=== PATIENT | female | born 1935 | race Caucasian/White ===

== ENCOUNTER 2018-11-18 07:20 | Inpatient (IN) | payer OTHER ==
[2018-11-10 12:22] LABS: URINE BILIRUBIN NEGATIVE (Negative); URINE BLOOD NEGATIVE (Negative); URINE CLARITY CLEAR; URINE COLOR YELLOW; URINE GLUCOSE-RANDOM NEGATIVE (Negative); URINE KETONES NEGATIVE (Negative); URINE LEUKOCYTES-REFLEX NEGATIVE (Negative); URINE NITRITE-REFLEX NEGATIVE (Negative); URINE PROTEIN NEGATIVE (Negative); URINE UROBILINOGEN 0.2 E.U./dl (0.2-1.0)
[~2018-11-18] VITALS: Ht 165.1 cm; Wt 84.3 kg
[~2018-11-18 07:20] MED LIST: ALLEGRA ALLERG180 MG PO; ALPHAGAN P5 ML OPHTHALMIC; AVASTIN25 MG/1 ML IV; CALCIUM 600 +1 EAC1 PO; DORZOLAMIDE 2%10 ML OPHTHALMIC; FLEXERIL PO; GLUCOSAMINE &1 EACH PO; LEVOXYL100 MCG PO; MOBIC15 MG PO; NEURONTIN 300300 M1 PO; OMEPRAZOLE 20 M20 M1 PO; OXYBUTYNIN 5 MG5 M2 PO; PRESERVISION A1 EACH PO; SIMVASTATIN40 MG PO; TIMOLOL GL0.5 %/5 M1 OPHTHALMIC; VITAMIN B122500 MCG PO; ZOLOFT50 MG PO
[2018-11-18 09:28] VITALS: BP 136/68
[2018-11-18 15:46] VITALS: BP 145/67
[2018-11-18 16:00] VITALS: BP 154/60
--- NOTE | 2018-11-18 17:18 | NUR ---
PT REMAINED ALERT AND ORIENTED. PT CAME FROM SURGERY FOR RT HIP. ARTEM APPROACH. FULL WBAT. HEMOVAC IN PLACE. ICE PACK TO HIP. MAGGIE HOSE ON BILAT. SCD FOOT PUMPS. 24 HOUR [address]SE OX IN PLACE WITH 2 LITERS O2. 1/2 NS AT 75 ML/HR. PAIN MEDS GIVEN ORDERED. FALL RISK PRECAUTIONS IN PLACE. HOURLY ROUNDING COMPLETED. WILL CONTINUE TO MONITOR.
[2018-11-18 20:10] VITALS: BP 145/62
[2018-11-19 00:31] VITALS: BP 108/59
[2018-11-19 04:19] VITALS: BP 129/66
[2018-11-19 04:53] LABS: HEMATOCRIT 34.7 % (37.0-47.0); HEMOGLOBIN 11.7 gm/dL (12.0-15.0)
--- NOTE | 2018-11-19 05:02 | NUR ---
PATIENT HAS REMAINED ALERT AND ORIENTED X 4 THROUGHOUT THE SHIFT AND RESTING QUIETLY ON HOURLY ROUNDS. PATIENT TRANSFERS IMPROVING. MIN ASSIST SUPINE TO SIT AND CGA ONCE UP FOR MOVE TO BSC. GAIT BELT AND WALKER. DRESSING RIGHT HIP CLEAN AND DRY WITH HEMOVAC PRESENT. PAIN WELL CONTROLLED WITH ORAL MEDICATION. ICE PACKS PROVIDED. VITAL SIGNS STABLE. CONTINUE TO MONITOR.
[2018-11-19 09:00] VITALS: BP 118/62
[2018-11-19 15:45] VITALS: BP 138/51
--- NOTE | 2018-11-19 16:25 | NUR ---
PT.RESTING IN BED. AND DAUGHTER AT BEDSIDE. PTS WILL BE WITH HER AT ALL TIMES AT DISCHARGE AND CAN ASSIST HER NEEDED. DAUGHTER CAN ASSIST IN EVENINGS IF NEEDED. PT.IS NORMALLY INDEPENDENT AT HOME. SHE COOKS,CLEANS,DOES LAUNDRY. HER ASSISTS HER WITH CHORES. PT.CHOSE [facility]. WILL MAKE REFERRAL. CALLED IN PRESCRIPTION FOR XARELTO WRITTEN TO PT.'S PHARMACY. WILL CHECK IN AM FOR COPAY AMOUNT.
--- NOTE | 2018-11-19 17:15 | NUR ---
PATIENT REMAINS ALERT AND ORIENTED. PAIN CONTROLLED WITH HYDROCODONE AND OXYIR. PARTICPATED WITH PT. UP WITH ASSIST OF 1, GAITBELT AND WALKER. DRESSING TO RIGHT HIP C/D/I. HEMOVAC DC'D THIS AM. TOLERATING MEALS. VSS. RA. INCENTIVE SPIROMETER IN USE. BED/CHAIR ALARM IN USE. CALL LIGHT WITHIN REACH. WILL CONTINUE TO MONITOR.
[2018-11-19 20:00] VITALS: BP 118/55
[2018-11-20 04:11] LABS: HEMATOCRIT 33.6 % (37.0-47.0); HEMOGLOBIN 11.5 gm/dL (12.0-15.0)
--- NOTE | 2018-11-20 05:04 | NUR ---
PT REMAINED A&Ox4 THROUGHOUT SHIFT. VITALS STABLE. PT GOT NORCO AROUND 2100 FOR PAIN. STATED PAIN WAS RATING A 1-2 OUT OF 10 WHEN ASKED THE REST OF THE SHIFT, DENIED PAIN MEDICATION. PT HAS EYE DROPS IN ROOM AND IS MANAGING THEM HERSELF. UP WITH 1 TO BATHROOM, USING GAITBELT AND WALKER. MEPILEX IS CLEAN, DRY AND INTACT. THIGH HIGH TEDS, SCDs, AND ICE PACK IN PLACE. FALL PRECAUTIONS IN PLACE. HOURLY ROUNDING COMPLETE. CALL LIGHT WITHIN REACH. WILL CONTINUE TO MONITOR.
[2018-11-20 08:00] VITALS: BP 127/65
[2018-11-20] MEDS ORDERED: PERCOCET PO (09:38)
[2018-11-20] MEDS ORDERED: XARELTO10 MG PO (09:38)
[2018-11-20 14:00] VITALS: BP 127/65
[2018-11-20 17:28] VITALS: BP 127/65
--- NOTE | 2018-11-20 17:33 | NUR ---
PT ALERT AND ORIENTED X 4. RIGHT HIP PAIN MANAGED WITH PO HYDROCODONE. DENIES NAUSEA. PARTICIPATED WITH THERAPY DURING DAY. UP WITH ASSIST X 1 WITH WALKER. PHYSICIAN PAGED TO INFORM OF DRESSING BEING WET DURING SHOWER. ORDER RECEIVED TO CHANGE MEPILEX DRESSING. IV REMOVED. DISCHARGE INSTRUCTIONS GIVEN ALONG WITH PRESCRIPTIONS. PT LEFT UNIT BY WHEEL CHAIR WITH PERSONAL BELONGINGS TO LEAVE WITH SPOUSE BY PRIVATE CAR @ 1700.
--- NOTE | 2018-11-24 14:09 | OP ---
[facility] [address] [place] [address] OPERATIVE REPORT Name: MATTISARA M Room: [address] [place] .R.#: [id number] Admission: 11/18/18 Attend Phys: Mike Barnhart Discharge: 11/20/18 Date of : 39 Report #: [id number] THIS REPORT FOR: //name// CC: Roe Tineo DATE OF SERVICE: 11/18/2018 PREOPERATIVE DIAGNOSIS: Right hip osteoarthritis. POSTOPERATIVE DIAGNOSIS: Right hip osteoarthritis. PROCEDURE: Right total hip arthroplasty with ceramic on polyethylene. SURGEON: Neville Eagle II, DO. EQUIPMENT MANAGER: MAICO Linder. ANESTHESIA: General endotracheal. ESTIMATED BLOOD LOSS: 350 mL. ANTIBIOTICS: Ancef preoperatively. DRAINS: Medium Hemovac. COMPLICATIONS: None. CONDITION OF THE PATIENT: Stable to recovery room. IMPLANTS: Listed in the operative record and progress note. BRIEF HISTORY: The patient was seen in the preoperative area. Preoperative H and P was performed. Site was marked, questions were answered. Risks and benefits were discussed with the patient in detail about the surgery. The patient wished to proceed assuming all risks. DESCRIPTION OF PROCEDURE: The patient was taken to the operative suite, placed supine on the operative table and given appropriate anesthesia. The patient's operative hip was placed on the [place] table leg altamirano and sterilely prepped and draped in the supine position. Surgery was begun by a longitudinal incision over the anterior portion of the hip. This was carried down to the skin and subcutaneous tissues. A small jarad was made in the tensor fascia. It was then split in line with its fibers and retracted laterally. An H capsulotomy was then performed and careful hemostasis was maintained with electrocautery and [facility] [address] [place] [address] OPERATIVE REPORT Name: SARA CHINO Room: [address] [place] [facility].#: [id number] Admission: 11/18/18 Attend Phys: Mike Barnhart Discharge: 11/20/18 Date of : 39 Report #: [id number] Aquamantys. The head and neck cutting alignment guide was then checked with fluoroscopic guidance. Appropriate cut was made to the head and neck and this was then removed. Attention was turned to the acetabulum. Excess labrum was removed. It was then reamed in sequential fashion up to appropriate size. This showed excellent bleeding bone and excellent position on fluoroscopic guidance. The acetabular cup was then malleted in position and secured with cancellous screws. Metal liner was then applied. The patient's leg was then rotated and extended to the [place] table to expose the femur. It was then broached in sequential fashion up to the appropriate size. The appropriate neck was then trialled with appropriate head length. It showed an excellent fit and fill and excellent stability of the hip throughout all range of motion. These trials were removed. The final stem was then malleted into position and the final head and neck was then malleted into position. It was reduced in appropriate fashion, checked with C-arm for appropriate leg length and showed an excellent leg length throughout the exam, without evidence of dislocation upon range of motion shuck testing. Wound was then copiously irrigated. Hemostasis was maintained with electrocautery and Aquamantys. Pain cocktail was injected. PRP gel was sprayed throughout the internal aspect of the hip and the drain was activated. The H capsulotomy was then closed utilizing #1 Vicryl in [id number] fashion. Tensor fascia was closed with #1 Vicryl in running fashion. Skin was closed with 2-0 Vicryl and running Monocryl. Dermabond and sterile dressing applied. The patient was transferred to the recovery room in stable condition. Counts were correct throughout the procedure. <ELECTRONICALLY SIGNED> By: Neville Eagle II, DO 11/24/18 [id number] Eagle II, DO /nt
== END 2018-11-20 17:00 | disposition home health service (06) | DRG 470 ==
LOC: M.SUR 07:20 → EDSTATUS 07:33 → M.PRE 07:35 → M.ORTHSURG 08:39 → M.TBA 08:39 → M.PRE 10:11 → M.ORTHSURG 14:29 → M.PRE 15:12 → M.ORTHSURG 11-20 17:00
PROVIDERS: Orthopaedic Surgery; ADMIT Internal Medicine
PROC: 0SR904Z Replacement of Right Hip Joint with Ceramic on Polyethylene Synthetic Substitute, Open Approach (ICD-10-PCS; principal; 2018-11-18)
DX: M16.11 Unilateral primary osteoarthritis, right hip (principal); E03.9 Hypothyroidism, unspecified; K21.9 Gastro-esophageal reflux disease without esophagitis; F32.9 Major depressive disorder, single episode, unspecified; H35.30 Unspecified macular degeneration; Z88.8 Allergy status to other drugs, medicaments and biological substances; Z90.49 Acquired absence of other specified parts of digestive tract; Z79.899 Other long term (current) drug therapy